=== PATIENT | male | born 1985 | race Caucasian/White ===

== ENCOUNTER 2023-12-18 18:38 | Emergency (ER) | payer SELFPAY ==
[2023-12-18 18:45] VITALS: BP 150/97; PULSE 76; RESP 18; TEMP 97.8; BMI 29.9
[2023-12-18] MEDS: IBUPROFEN 600 MG TABLET (FP) PO ONE (20:04)
[2023-12-18] MEDS ORDERED: IBUPROFEN 600 MG TABLET (FP) PO ONE (20:05)
== END 2023-12-18 20:20 | disposition home or self-care (01) ==
LOC: JERFT 18:38
DX: T16.1XXA Foreign body in right ear, initial encounter (principal); H92.01 Otalgia, right ear
CPT/HCPCS: 99283-25